=== PATIENT | male | born 1960 | race Caucasian/White ===

== ENCOUNTER 2019-06-03 08:09 | Emergency (ER) | payer MEDICAID ==
[~2019-06-03] VITALS: Ht 172.7 cm; Wt 65.8 kg
[2019-06-03] MEDS ORDERED: IBUP800T54 PO (08:18)
[2019-06-03 08:19] VITALS: BP_SYST 122
[2019-06-03] MEDS ORDERED: ACET325T53 PO (08:19)
--- NOTE | 2019-06-03 08:25 | NUR ---
PT CAME TO ER FOR HEMATURIA AND ABD PAIN AFTER EATING. STATES ABD PAIN IS 10/10 AFTER EATING SHARP PAIN.
--- NOTE | 2019-06-03 08:26 | NUR ---
PATIENT TO WAITING ROOM; STABLE; UNCHANGED
[2019-06-03] MEDS ORDERED: KETOROLAC TROMETHAMINE 60 MG/2 ML VIAL IM ONE (09:15)
--- NOTE | 2019-06-03 09:30 | NUR ---
PT STATESPAIN MEDICATION REDUCED PAIN FROM 6 TO 2. PT RESTING COMFORTABLY.
[2019-06-03 10:10] LABS: BASOPHILS % (AUTO) 0.3 % (0.0-2.0); EOSINOPHILS # (AUTO) 0.2 K/uL (0.0-0.4); EOSINOPHILS % (AUTO) 3.3 % (0.0-4.0); HEMATOCRIT 40.4 % (36-54); LYMPHOCYTES # (AUTO) 1.7 K/uL (1.0-5.5); LYMPHOCYTES % (AUTO) 28.9 % (20.5-51.5); MEAN CORPUSCULAR HEMOGLOBIN 28 pg (27-31); MEAN CORPUSCULAR HGB CONC 32 % (32-36); MEAN CORPUSCULAR VOLUME 86 fL (79.0-98.0); MONOCYTES # (AUTO) 0.4 K/uL (0.0-1.0); MONOCYTES % (AUTO) 6.8 % (1.7-9.3); NEUTROPHILS # (AUTO) 3.5 K/uL (1.8-7.7); NEUTROPHILS % (AUTO) 60.7 % (40.0-70.0); PLATELET COUNT (AUTO) 252 K/uL (130-430); WHITE BLOOD COUNT (AUTO) 5.7 K/uL (4.8-10.8)
[2019-06-03 10:21] LABS: CALCIUM 9.2 mg/dL (8.4-11.0); CREATININE 1.02 mg/dL (0.55-1.30); POTASSIUM 4.5 mmol/L (3.5-5.1)
[2019-06-03 10:25] LABS: ALBUMIN 3.8 g/dL (3.4-4.8); TOTAL BILIRUBIN 0.3 mg/dL (0.0-1.0)
--- NOTE | 2019-06-03 10:30 | NUR ---
RESTING COMFORTABLY IN BED AT THIS TIME. NO DISTRESS NOTED.
[2019-06-03 11:30] VITALS: BP_SYST 122
--- NOTE | 2019-06-03 11:30 | NUR ---
Patient given written and verbal discharge instructions and verbalizes understanding. ER MD discussed with patient the results and treatment provided. Patient in stable condition. ID arm band removed. Rx of PEPCID given. Patient educated on pain management and to follow up with PMD. Pain Scale 2. Opportunity for questions provided and answered. Medication side effect fact sheet provided.
== END 2019-06-03 11:30 | disposition home or self-care (01) ==
LOC: SED 08:09
DX: R10.12 Left upper quadrant pain (principal); I10 Essential (primary) hypertension
CPT/HCPCS: 36415; 74018; 80053; 83690; 85025; 96372; 99284; J1885

== ENCOUNTER 2019-07-17 18:51 | Emergency (ER) | payer MEDICAID ==
[~2019-07-17] VITALS: Ht 172.7 cm; Wt 68.0 kg
[~2019-07-17 18:51] MED LIST: ACET325T53 PO; IBUP800T54 PO
[2019-07-17 19:12] VITALS: BP_SYST 143
[2019-07-17] MEDS ORDERED: MECLIZINE HCL 25 MG TABLET (ANITVERT) PO ONE (19:15)
[2019-07-17] MEDS ORDERED: NACL 0.9% 1,000 ML IV ONE (19:23)
[2019-07-17] MEDS ORDERED: MORPHINE 4 MG/ML INJ. SYRINGE IVP ONE (19:30)
[2019-07-17] MEDS ORDERED: ONDANSETRON HCL 4 MG/2 ML VIAL IVP ONE (19:30)
[2019-07-17 20:04] LABS: BASOPHILS # (AUTO) 0.1 K/uL (0.0-0.2); BASOPHILS % (AUTO) 1.1 % (0.0-2.0); EOSINOPHILS # (AUTO) 0.2 K/uL (0.0-0.4); EOSINOPHILS % (AUTO) 3.6 % (0.0-4.0); HEMATOCRIT 39.3 % (36-54); HEMOGLOBIN 12.8 g/dL (14.0-18.0); LYMPHOCYTES # (AUTO) 2.1 K/uL (1.0-5.5); LYMPHOCYTES % (AUTO) 36.9 % (20.5-51.5); MEAN CORPUSCULAR HEMOGLOBIN 28 pg (27-31); MEAN CORPUSCULAR HGB CONC 33 % (32-36); MEAN CORPUSCULAR VOLUME 86 fL (79.0-98.0); MONOCYTES # (AUTO) 0.5 K/uL (0.0-1.0); NEUTROPHILS # (AUTO) 2.9 K/uL (1.8-7.7); NEUTROPHILS % (AUTO) 50.4 % (40.0-70.0); PLATELET COUNT (AUTO) 255 K/uL (130-430); RED BLOOD CELL COUNT(AUTO) 4.58 MIL/uL (4.2-6.2); WHITE BLOOD COUNT (AUTO) 5.8 K/uL (4.8-10.8)
[2019-07-17 20:06] LABS: CALCIUM 9.6 mg/dL (8.4-11.0); POTASSIUM 4.4 mmol/L (3.5-5.1)
[2019-07-17 20:08] LABS: BILIRUBIN,URINE NEGATIVE (NEGATIVE); BLOOD, URINE NEGATIVE (NEGATIVE); CLARITY/URINE CLEAR (CLEAR); COLOR,URINE YELLOW (YELLOW); GLUCOSE,URINE NEGATIVE (NEGATIVE); KETONES,URINE NEGATIVE (NEGATIVE); LEUKOCYTE ESTERASE ,URINE NEGATIVE (NEGATIVE); NITRITE, URINE NEGATIVE (NEGATIVE); PROTEIN URINE NEGATIVE (NEGATIVE); UROBILINOGEN,URINE 0.2 (0.2-1.0)
[2019-07-17 20:12] LABS: TOTAL BILIRUBIN 0.3 mg/dL (0.0-1.0)
[2019-07-17 20:16] LABS: INR 1.1 (0.80-1.20); PROTHROMBIN TIME 11.1 SECS (9.5-12.5)
[2019-07-17 20:19] LABS: BARBITURATE, URINE NEGATIVE (NEG <=200); BENZODIAZEPINE, URINE NEGATIVE (NEG <=150); CANNABINOID, URINE NEGATIVE (NEG <=50); COCAINE, URINE NEGATIVE (NEG <=150); METHAMPHETAMINES SCREEN,URINE NEGATIVE (NEG <=500); OPIATE, URINE NEGATIVE (NEG <=100); PHENCYCLIDINE SCREEN,URINE NEGATIVE (NEG <=25); UR TRICYCLIC ANTIDEPRESSANTS NEGATIVE (NEG <=300); URINE AMPHETAMINE NEGATIVE (NEG <=500); URINE METHADONE NEGATIVE (NEG <=200); URINE OXYCODONE SCREEN NEGATIVE (NEG <=100); URINE PROPOXYPHENE SCREEN NEGATIVE (NEG <=300)
[2019-07-17 21:55] VITALS: BP_SYST 138
== END 2019-07-17 21:55 | disposition home or self-care (01) ==
LOC: SED 18:51
DX: R10.84 Generalized abdominal pain (principal); R11.2 Nausea with vomiting, unspecified; I10 Essential (primary) hypertension
CPT/HCPCS: 36415; 71045; 80053; 80307; 81003; 82150; 82550; 83605; 83690; 83880; 84484; 85025; 85610; 85730; 87040; 93005; 96361; 96374; 96375; 99285; J2270; J2405; J7030

== ENCOUNTER 2021-03-29 06:27 | Emergency (ER) | payer MEDICAID ==
[~2021-03-29] VITALS: Ht 172.7 cm; Wt 72.6 kg
[2021-03-29 06:45] VITALS: BP_SYST 171
--- NOTE | 2021-03-29 06:45 | NUR ---
Patient triaged and placed in waiting room. VSS and patient appears in no acute distress at this time. , awaiting available bed, and MD notified of need for MSE.
--- NOTE | 2021-03-29 07:20 | NUR ---
PATIENT FRIEND CONTACT Carmen Lloyd [phone]
--- NOTE | 2021-03-29 07:43 | NUR ---
DR KNIGHT OUT TO TRIAGE ROOM FOR EVALUATION
[2021-03-29] MEDS ORDERED: KETOROLAC TROMETHAMINE 60 MG/2 ML VIAL IM ONE (07:45)
[2021-03-29 08:03] LABS: BASOPHILS % (AUTO) 0.7 % (0.0-2.0); EOSINOPHILS # (AUTO) 0.1 K/uL (0.0-0.4); EOSINOPHILS % (AUTO) 1.3 % (0.0-4.0); HEMATOCRIT 39.9 % (36-54); HEMOGLOBIN 13.2 g/dL (14.0-18.0); LYMPHOCYTES # (AUTO) 0.4 K/uL (1.0-5.5); LYMPHOCYTES % (AUTO) 6.6 % (20.5-51.5); MEAN CORPUSCULAR HEMOGLOBIN 27 pg (27-31); MEAN CORPUSCULAR HGB CONC 33 % (32-36); MEAN CORPUSCULAR VOLUME 83 fL (79.0-98.0); MONOCYTES # (AUTO) 0.5 K/uL (0.0-1.0); MONOCYTES % (AUTO) 9.1 % (1.7-9.3); NEUTROPHILS # (AUTO) 4.4 K/uL (1.8-7.7); NEUTROPHILS % (AUTO) 82.3 % (40.0-70.0); PLATELET COUNT (AUTO) 278 K/uL (130-430); RED BLOOD CELL COUNT(AUTO) 4.81 MIL/uL (4.2-6.2); RED CELL DISTRIBUTION WIDTH 14.4 % (9.0-15.0); WHITE BLOOD COUNT (AUTO) 5.3 K/uL (4.8-10.8)
--- NOTE | 2021-03-29 08:04 | NUR ---
pt. returned from radiology, medicated for pain, in triage room for EKG
[2021-03-29 08:18] LABS: ANION GAP 4 (5-15); CALCIUM 9.6 mg/dL (8.4-11.0); CHLORIDE 101 mmol/L (98-107); CREATININE 0.87 mg/dL (0.55-1.30); GLUCOSE 109 mg/dL (70-99); POTASSIUM 4.6 mmol/L (3.5-5.1); SODIUM SERUM 134 mmol/L (136-145); UREA NITROGEN, BLOOD 17 mg/dL (8-21)
[2021-03-29 08:26] LABS: ALANINE AMINOTRANSFERASE 27 U/L (12-78); ALBUMIN 3.8 g/dL (3.4-4.8); ASPARTATE AMINOTRANSFERASE 17 U/L (10-37); TOTAL BILIRUBIN 0.3 mg/dL (0.0-1.0)
[2021-03-29 08:32] LABS: GFR AFRICAN AMERICAN 115 mL/min (>90)
--- NOTE | 2021-03-29 09:39 | NUR ---
DR KNIGHT OUT TO TRIAGE ROOM FOR RE-EVALUATION OF PT.
[2021-03-29] MEDS ORDERED: NAPR-688 PO (09:43)
--- NOTE | 2021-03-29 09:57 | NUR ---
Patient given written and verbal discharge instructions and verbalizes understanding. ER MD discussed with patient the results and treatment provided. Patient in stable condition. ID arm band removed. Rx of NAPROXEN given. Patient educated on pain management and to follow up with PMD. Pain Scale 0/10. Opportunity for questions provided and answered. Medication side effect fact sheet provided.
== END 2021-03-29 09:57 | disposition home or self-care (01) ==
LOC: SED 06:27
DX: M54.50 Low back pain, unspecified (principal); R07.89 Other chest pain; I10 Essential (primary) hypertension; Z79.899 Other long term (current) drug therapy
CPT/HCPCS: 36415; 71045; 80053; 84484; 85025; 93005; 96372; 99285; J1885